=== PATIENT | female | born 1995 | race African-American/Black ===

== ENCOUNTER 2022-07-06 04:19 | Emergency (ER) | payer OTHER ==
[~2022-07-06] VITALS: Ht 167.6 cm; Wt 64.0 kg
[2022-07-06 04:34] VITALS: BP_SYST 120
[2022-07-06] MEDS ORDERED: HYDC2.5% TP (04:57)
[2022-07-06] MEDS ORDERED: DIPH25CA83 PO (04:57)
[2022-07-06 05:02] VITALS: BP_SYST 120
== END 2022-07-06 05:02 | disposition home or self-care (01) ==
LOC: SED 04:19
DX: L23.9 Allergic contact dermatitis, unspecified cause (principal); Z79.899 Other long term (current) drug therapy
CPT/HCPCS: 99282